=== PATIENT | female | born 1935 | race Caucasian/White ===

== ENCOUNTER 2016-09-06 04:47 | Inpatient (IN) | payer MEDICARE ==
--- NOTE | ~2016-09-06 | HP ---
History And Physical [address] [place]. [address] NAME: RODDY LORA : 37 STATUS : ADM IN [facility]#: [id number] AGE: 80 ADM/REG DATE : 09/06/16 MR#: [id number] REPORT SERV DATE: 09/06/16 DICTATED BY: ISAC AVILA DATE: 09/06/16 REPORT STATUS : Draft TRANSCRIBED BY: MODL DATE: 09/06/16 DATE OF ADMISSION: 09/06/2016 CHIEF COMPLAINT: A 80-year-old female presenting with shortness of breath. HISTORY OF PRESENTING ILLNESS: The patient's history was obtained through an interview with the patient and daughter coupled with review of [facility] and [facility] medical records. For about five days now, the patient has been having increasing shortness of breath and a cough productive of a green and sometimes clear sputum. She describes shortness of breath characterized by dyspnea on exertion. She has had to increase her chronic nasal cannula oxygen because of shortness of breath and because of reported low O2 saturations. Occasionally over the last few days, the patient also had elevated heart rate with palpitations. She describes her chest discomfort "like a car sitting on my chest," 8/10 severity, associated with dyspnea on exertion. She describes abdominal pain and epigastric cramping, distended quality discomfort, 9/10 severity. She has had slight increased confusion. She has had nausea, vomiting, subjective fevers and chills. She may have noticed some black stool?, but this has been a chronic condition. REVIEW OF SYSTEMS: Otherwise, a 14-point review of systems was obtained and was negative. PAST MEDICAL HISTORY: 1. COPD, followed by Dr. Coronado. 2. Congestive heart failure, followed by Dr. Dos Santos. 3. Negative catheterization of the heart in 02/2015. 4. Chronic interstitial lung disease with pulmonary fibrosis. 5. Chronic anemia with central thrombocytosis and a history of a bone marrow biopsy, followed by Dr. Granados with history of multiple blood transfusions as outpatient. 6. Neuropathy. 7. Sinusitis. 8. Colon polyps, seen by Dr. Trevizo. 9. Strokes. 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 11.Gastroesophageal reflux disorder. 12.Depression. PAST SURGICAL HISTORY: 1. Hysterectomy with oophorectomy. 2. Right hip surgery. History And Physical [address] [place]. [address] NAME: RODDY LORA : 37 STATUS : ADM IN [facility]#: [id number] AGE: 80 ADM/REG DATE : 09/06/16 MR#: [id number] REPORT SERV DATE: 09/06/16 DICTATED BY: ISAC AVILA DATE: 09/06/16 REPORT STATUS : Draft TRANSCRIBED BY: MODL DATE: 09/06/16 ALLERGIES: PENICILLIN. SOCIAL HISTORY: Quit smoking in 1986. Rare alcohol use. Lives in [place], [place]. Is a . Lives alone. Daughter lives close by. FAMILY HISTORY: Lung cancer and congestive heart failure. CURRENT MEDICATIONS: Unknown at this time. We requested pharmacy to investigate into a medication list. PHYSICAL EXAMINATION: VITAL SIGNS: Temperature 97.5, pulse 91, blood pressure 128/60, respiratory rate 19, O2 saturation 88% on 4 L nasal cannula and 96% on 6 L nasal cannula. GENERAL: A very ill-appearing female in evidence of some distress even because of shortness of breath and cough. HEENT: Pupils equal, round, and reactive to light. No conjunctival pallor. No scleral icterus. Nares are patent. Oropharynx is clear of obstruction. Moist mucous membranes. NECK: Trachea midline. No thyromegaly. LYMPH: No cervical lymphadenopathy. No supraclavicular lymphadenopathy. RESPIRATORY: The patient has very prominent rhonchi on examination, but also fine dry crackles throughout that suggests pulmonary fibrosis. There seem to be wet rales at the bases of the lungs, some prominent wheeze is also noted. In general, the patient has a very harsh diffuse exam with wheezes, rhonchi, and rales throughout. A very labored respiratory effort, but not in any emergent distress. CARDIOVASCULAR: Regular rate and rhythm. No murmurs, rubs, or gallops. The patient does have noted minimally pitting lower extremity edema that is symmetrical. ABDOMEN: Seems distended by exam. No tympanic resonance on percussion though. Really nontender throughout. No splenomegaly. DERMATOLOGICAL: Warm and dry extremities. No pallor, no cyanosis. PSYCHIATRIC: Normal affect. Good mood. Alert and oriented x3. LABORATORY DATA: White blood cell count 16.8, hemoglobin 7.4, hematocrit 22.7, platelet count of 1252. Sodium 139, potassium 4.6, chloride 97, bicarb 38, BUN 13, creatinine 0.97, glucose 138. Brain natriuretic peptide 288, troponin 0.05. STUDIES: Chest x-ray by my own evaluation shows congestion, cardiomegaly, possible infiltrates. Chronic interstitial lung disease with pulmonary fibrosis. ASSESSMENT AND PLAN: 1. Hypoxic respiratory failure, multifactorial, secondary to chronic obstructive pulmonary disease, possible infiltrates, pulmonary fibrosis, congestive heart failure, and anemia. We will provide supportive care and address each of these. 2. Chronic obstructive pulmonary disease exacerbation. Place on IV Solu-Medrol, duo nebulizers. 3. Systemic inflammatory response syndrome with possible pneumonia? Check procalcitonin. Check blood cultures. Place on empiric IV antibiotics for now to cover pneumonia. History And Physical [address] [address] NAME: RODDY LORA : 37 STATUS : ADM IN [facility]#: [id number] AGE: 80 ADM/REG DATE : 09/06/16 MR#: [id number] REPORT SERV DATE: 09/06/16 DICTATED BY: ISAC AVILA DATE: 09/06/16 REPORT STATUS : Draft TRANSCRIBED BY: ARTIS DATE: 09/06/16 4. Congestive heart failure exacerbation. Place on IV Lasix. Check an echocardiogram. Possible underlying pulmonary hypertension or cor pulmonale? Place on nitro paste. Evaluate for NGOZI inhibitor and beta-mayo. 5. Pulmonary fibrosis. I would like to check high-resolution CT scan of the chest while the patient is here to better define how advanced the patient's pulmonary fibrosis is and how much is related to other pulmonary issues in this presentation. 6. Symptomatic anemia. We will transfuse 1 unit blood. Will be seen as outpatient by Dr. Granados, oncologist, with essential thrombocytosis. KPL/MODL Isac Avila M.D. / [id number] CC: Negro Scruggs M.D. MD Bret Kothari III, M.D., [facility]
--- NOTE | ~2016-09-06 | DS ---
Discharge Summary [facility] [address] [place]. [address] NAME: RODDY LORA : 39 STATUS : DIS IN PAT#: [id number] AGE: 80 ADM/REG DATE : 09/06/16 MR#: [id number] REPORT SERV DATE: 09/10/16 DICTATED BY: ABDIEL BARTH DATE: 09/09/16 REPORT STATUS : Draft TRANSCRIBED BY: MODMartin DATE: 09/09/16 ADMISSION DATE: 09/06/2016 DISCHARGE DATE: 09/09/2016 PRINCIPAL DIAGNOSIS: Symptomatic anemia with occult GI bleeding, guaiac positive stool, and melena. SECONDARY DIAGNOSES: IPF with bronchiectasis and acute on chronic hypoxemic respiratory failure, essential thrombocytosis with chronic leukocytosis, chronic obstructive pulmonary disease, hypercapnia. HISTORY PRESENT ILLNESS: See Dr. Woods's dictation 09/06/2016. HOSPITAL COURSE: Admitted with acute shortness of breath found to have a drop in her hematocrit. She had recently been found to have a guaiac positive stool and had a negative EGD and colonoscopy within the previous several weeks. Her aspirin had to be held. She was transfused, was thought found to be iron deficient, and she felt much better with transfusion. There was a concern about recurrent Pseudomonas. She did in fact have gram- negative rods of unclear identity in her sputum but no pus cells. She was treated empirically, however, with ciprofloxacin given the Pseudomonas history. She was seen by GI who did not wish to do any further inpatient evaluation but she had appointment with Dr. Trevizo on 09/09/2016 so she was discharged in the morning of 09/09/2016 to follow up with him for the possibility of followup capsule endoscopy or other enteroscopic procedure. She will follow up with Dr. Levon oreilly, with Dr. Trevizo on 09/09/2016 as scheduled, Dr. Fredi Granados, her image assembler as previously scheduled as well and with Dr. Treva Coronado, within the next week for further evaluation of her pulmonary disorder. ALFIE/ARTIS Abdiel Barth M.D. / [id number] CC: Easton Soto M.D. Munford Yates III, M.D. Gregory R. Sutton, MD Leonard Hays III, M.D., [facility]
[~2016-09-06 04:47] MED LIST: AMARYL2 PO; ANXIETY MEDICATION PO; CALTRAT600 PO; CELEXA10 PO; CLARIT10 PO; COREG12 PO; COREG3 PO; FESO4UDL PO; NEUR300 PO; NEXIUM40 PO; NTG150 SL; PRIN20 PO; PRIN5 PO; PROVENTSOL INH; SPIRIVA INH; STARLIX60 PO; SYMBICORT 160/41 INH INH; VITAMIN D31000 UNIT PO; ZANTAC150 MG PO
[2016-09-06 05:32] LABS: BUN (BLOOD UREA NITROGEN) 13 MG/DL (6-23); CALCIUM, SERUM 9.9 MG/DL (8.5-10.4); CHEST PAIN PROFILE TAT 0 Hrs 12 Mins; CHLORIDE, SERUM 97 MMOL/L (96-112); CO2 (CARBON DIOXIDE) 38 MMOL/L (24-34); CREATININE 0.97 MG/DL (0.55-1.02); GFR AFRICAN AMERICAN 65 ML/MIN (>=60); GFR NON AFRICAN AMERICAN 56 ML/MIN (>=60); GLUCOSE, SERUM 134 MG/DL (60-99); POTASSIUM, SERUM 4.6 MMOL/L (3.5-5.3); SODIUM, SERUM 139 MMOL/L (135-148); TROPONIN I 0.05 NG/ML (<0.05)
[2016-09-06 06:52] LABS: BASOPHILS 0.5 %; BASOPHILS ABSOLUTE 0.08 10/3/uL (0.0-0.16); EOSINOPHILS ABSOLUTE 0.34 10/3/uL (0.0-0.53); ER CBC TAT 1 Hrs 32 Mins; HEMATOCRIT 23.9 % (36.0-48.0); HEMOGLOBIN 7.4 g/dL (12.0-16.0); IMMATURE GRANULOCYTES 2.1 %; IMMATURE GRANULOCYTES ABSOLUTE 0.36 10/3/uL (0.0-0.11); LYMPHOCYTES 5.5 %; LYMPHOCYTES ABSOLUTE 0.93 10/3/uL (0.67-4.30); MANUAL DIFF NO %; MEAN CORPUSCULAR HEMOGLOB 27.9 pg (26.0-34.0); MEAN CORPUSCULAR VOLUME 90.2 fL (80-100); MEAN PLATELET VOLUME 9.6 fL (9.2-13.0); MONOCYTES 4.3 %; MONOCYTES ABSOLUTE 0.72 10/3/uL (0.21-1.20); NEUTROPHILS 85.6 %; NEUTROPHILS ABSOLUTE 14.34 10/3/uL (2.02-8.40); NUCLEATED RED BLOOD CELLS 0.6 /100WBC (0-0); PLATELET COUNT 1252 10/3/uL (150-400); RBC DISTRIBUTION WIDTH 18.2 % (12.0-16.0); RED CELL COUNT 2.65 10/6/uL (4.0-5.6); WHITE BLOOD CELLS 16.8 10/3/uL (4.5-10.5)
[2016-09-06 06:53] LABS: RBC MORPHOLOGY NORM (NORMAL)
[2016-09-06 06:55] LABS: INTERNATIONAL NORMAL RATI 1.2 UNITS (-); PARTIAL THROMBO TIME 38.7 SEC (22.5-37.2); PROTIME (NOT ORD) 14.7 SEC (12.0-14.5)
[2016-09-06 07:34] LABS: ALLENS TEST Pos; BE (BASE EXCESS) 9.5 MEQ/L (0 +/- 2.5); CARBOXYHEMOGLOBIN 2.1 % (0-3); DEVICE NC; HCO3 (ACTUAL BICARBONATE) 36.8 MEQ/L (23-27); HEMOBLOGIN CONTENT 7.8 G/DL (12-16); INSTRUMENT SERIAL # 8087; METHEMOGLOBIN 0.2 % (0-3); O2 CONTENT 10.3 VOL% (18-24); OPERATOR ID 17589; PCO2 (CO2 TENSION) 72 MMHG (35-45); PO2 (O2 TENSION) 85 MMHG (79-93); SAMPLE Arterial; pH 7.33 (7.37-7.43)
[2016-09-06] MEDS ORDERED: COREG12 PO (08:30)
[2016-09-06] MEDS ORDERED: NEUR300 PO (08:30)
[2016-09-06] MEDS ORDERED: AMARYL1 MG PO (08:30)
[2016-09-06] MEDS ORDERED: ZESTRIL20 MG PO (08:30)
[2016-09-06] MEDS ORDERED: SPIRIVA INH (08:33)
[2016-09-06] MEDS ORDERED: NASONEX NAS (08:33)
[2016-09-06] MEDS ORDERED: CELEXA10 PO (08:33)
[2016-09-06] MEDS ORDERED: XYZAL5 MG PO (08:33)
[2016-09-06] MEDS ORDERED: CALTRAT600 PO (08:34)
[2016-09-06] MEDS ORDERED: VITAMIN D31000 UNIT PO (08:34)
[2016-09-06] MEDS ORDERED: HALF81 PO (08:34)
[2016-09-06] MEDS ORDERED: ALBUTEROL0.63 MG/3 INH (08:34)
[2016-09-06] MEDS ORDERED: PROTONIX PO (08:34)
[2016-09-06] MEDS ORDERED: NORCO1 TA1 PO (08:35)
[2016-09-06 11:37] LABS: HEMATOCRIT 25.7 % (36.0-48.0); MANUAL DIFF YES %; MEAN CORPUS HGB CONC 31.1 g/dL (32.0-36.0); MEAN CORPUSCULAR HEMOGLOB 27.6 pg (26.0-34.0); MEAN CORPUSCULAR VOLUME 88.6 fL (80-100); NUCLEATED RED BLOOD CELLS 0.7 /100WBC (0-0); PLATELET COUNT 1292 10/3/uL (150-400); WHITE BLOOD CELLS 15.8 10/3/uL (4.5-10.5)
[2016-09-06 11:40] LABS: INTERNATIONAL NORMAL RATI 1.1 UNITS (-); PARTIAL THROMBO TIME 38.3 SEC (22.5-37.2); PROTIME (NOT ORD) 14.4 SEC (12.0-14.5)
[2016-09-06 11:56] LABS: A/G RATIO 0.7 (0.7-1.9); ALBUMIN 3.3 G/DL (3.5-5.0); ALKALINE PHOSPHATASE 83 U/L (45-117); BUN (BLOOD UREA NITROGEN) 17 MG/DL (6-23); CALCIUM, SERUM 9.6 MG/DL (8.5-10.4); CHLORIDE, SERUM 89 MMOL/L (96-112); CO2 (CARBON DIOXIDE) 38 MMOL/L (24-34); CREATININE 1.15 MG/DL (0.55-1.02); GFR AFRICAN AMERICAN 53 ML/MIN (>=60); GFR NON AFRICAN AMERICAN 46 ML/MIN (>=60); GLOBULIN 4.8 G/DL (2.5-4.1); GLUCOSE, SERUM 336 MG/DL (60-99); POTASSIUM, SERUM 4.2 MMOL/L (3.5-5.3); SGOT(AST) 14 U/L (5-40); SGPT(ALT) 12 U/L (5-65); SODIUM, SERUM 136 MMOL/L (135-148); TOTAL BILIRUBIN 0.5 MG/DL (0-1.2); TOTAL PROTEIN 8.1 G/DL (6.0-8.5); TROPONIN I 0.03 NG/ML (<0.05)
[2016-09-06 12:04] LABS: BAND NEUTROPHILS 7 %; LYMPHOCYTES 2 %; LYMPHOCYTES ABSOLUTE (CALC) 0.32 10/3/uL (0.67-4.30); MONOCYTES 2 %; MONOCYTES ABSOLUTE (CALC) 0.32 10/3/uL (0.21-1.20); NEUTROPHILS ABSOLUTE (CALC) 15.17 10/3/uL (2.02-8.40); SEGMENTED NEUTROPHIL (0) 89 %; TOTAL NUCLEATED CELLS 100
[2016-09-06 12:05] LABS: ANISOCYTOSIS 1+ (5-10/OIF) (0-5/OIF)
[2016-09-06 12:06] LABS: GIANT PLATELET FEW
[2016-09-06 12:13] LABS: RETICULOCYTE COUNT 2.1 % (0.5-2.9); RETICULOCYTE COUNT ABSOLUTE 58.9 10/3/uL (20.2-119.8)
[2016-09-06 12:40] LABS: PROCALCITONIN <0.05 ng/mL (<0.5)
[2016-09-06 13:30] LABS: % IRON SAT 18 % (20-50); FERRITIN 1447 NG/ML (8-252); IRON BINDING CAPACITY 265 MCG/DL (225-410); IRON, SERUM 48 MCG/DL (35-150)
[2016-09-07 04:21] LABS: ALLENS TEST Pos; BE (BASE EXCESS) 14.1 MEQ/L (0 +/- 2.5); CARBOXYHEMOGLOBIN 0.4 % (0-3); DEVICE NC; HCO3 (ACTUAL BICARBONATE) 40.8 MEQ/L (23-27); HEMOBLOGIN CONTENT 9.6 G/DL (12-16); INSTRUMENT SERIAL # 8083; METHEMOGLOBIN 0.3 % (0-3); O2 CONTENT 13.5 VOL% (18-24); OPERATOR ID 30014; PCO2 (CO2 TENSION) 65 MMHG (35-45); PO2 (O2 TENSION) 145 MMHG (79-93); SAMPLE Arterial; pH 7.41 (7.37-7.43)
[2016-09-07 05:36] LABS: A/G RATIO 0.7 (0.7-1.9); ALKALINE PHOSPHATASE 78 U/L (45-117); CHLORIDE, SERUM 90 MMOL/L (96-112); CO2 (CARBON DIOXIDE) 39 MMOL/L (24-34); GFR AFRICAN AMERICAN 38 ML/MIN (>=60); GFR NON AFRICAN AMERICAN 33 ML/MIN (>=60); GLOBULIN 4.1 G/DL (2.5-4.1); POTASSIUM, SERUM 4.2 MMOL/L (3.5-5.3); SGOT(AST) 14 U/L (5-40); SGPT(ALT) 12 U/L (5-65); SODIUM, SERUM 135 MMOL/L (135-148); TOTAL BILIRUBIN 0.5 MG/DL (0-1.2); TOTAL PROTEIN 7.1 G/DL (6.0-8.5)
[2016-09-07 05:38] LABS: BUN (BLOOD UREA NITROGEN) 31 MG/DL (6-23); GLUCOSE, SERUM 251 MG/DL (60-99)
[2016-09-07 05:46] LABS: BASOPHILS 0.2 %; BASOPHILS ABSOLUTE 0.03 10/3/uL (0.0-0.16); EOSINOPHILS 0 %; HEMATOCRIT 25.3 % (36.0-48.0); HEMOGLOBIN 8.2 g/dL (12.0-16.0); IMMATURE GRANULOCYTES 2.7 %; IMMATURE GRANULOCYTES ABSOLUTE 0.42 10/3/uL (0.0-0.11); LYMPHOCYTES 3.7 %; LYMPHOCYTES ABSOLUTE 0.57 10/3/uL (0.67-4.30); MEAN CORPUS HGB CONC 32.4 g/dL (32.0-36.0); MEAN CORPUSCULAR VOLUME 86.3 fL (80-100); MEAN PLATELET VOLUME 9.9 fL (9.2-13.0); MONOCYTES 6.8 %; MONOCYTES ABSOLUTE 1.05 10/3/uL (0.21-1.20); NEUTROPHILS 86.6 %; NEUTROPHILS ABSOLUTE 13.29 10/3/uL (2.02-8.40); NUCLEATED RED BLOOD CELLS 1.2 /100WBC (0-0); RBC DISTRIBUTION WIDTH 17.6 % (12.0-16.0); RED CELL COUNT 2.93 10/6/uL (4.0-5.6); WHITE BLOOD CELLS 15.4 10/3/uL (4.5-10.5)
[2016-09-07 05:49] LABS: PLATELET COUNT 1248 10/3/uL (150-400)
[2016-09-07 05:50] LABS: MANUAL DIFF NO %
[2016-09-07 06:06] LABS: ANISOCYTOSIS 1+ (5-10/OIF) (0-5/OIF); GIANT PLATELET FEW; RBC MORPHOLOGY ABN (NORMAL)
[2016-09-08 05:01] LABS: HEMATOCRIT 23.9 % (36.0-48.0); HEMOGLOBIN 7.7 g/dL (12.0-16.0); MEAN CORPUS HGB CONC 32.2 g/dL (32.0-36.0); MEAN CORPUSCULAR HEMOGLOB 27.9 pg (26.0-34.0); MEAN CORPUSCULAR VOLUME 86.6 fL (80-100); MEAN PLATELET VOLUME 9.6 fL (9.2-13.0); NUCLEATED RED BLOOD CELLS 0.8 /100WBC (0-0); RBC DISTRIBUTION WIDTH 17.7 % (12.0-16.0); RED CELL COUNT 2.76 10/6/uL (4.0-5.6); WHITE BLOOD CELLS 18.3 10/3/uL (4.5-10.5)
[2016-09-08 05:05] LABS: A/G RATIO 0.8 (0.7-1.9); ALBUMIN 2.8 G/DL (3.5-5.0); ALKALINE PHOSPHATASE 62 U/L (45-117); BUN (BLOOD UREA NITROGEN) 31 MG/DL (6-23); CALCIUM, SERUM 9.1 MG/DL (8.5-10.4); CHLORIDE, SERUM 96 MMOL/L (96-112); CO2 (CARBON DIOXIDE) 39 MMOL/L (24-34); CREATININE 1.06 MG/DL (0.55-1.02); GFR AFRICAN AMERICAN 58 ML/MIN (>=60); GFR NON AFRICAN AMERICAN 50 ML/MIN (>=60); GLOBULIN 3.5 G/DL (2.5-4.1); GLUCOSE, SERUM 76 MG/DL (60-99); SGOT(AST) 16 U/L (5-40); SGPT(ALT) 9 U/L (5-65); SODIUM, SERUM 139 MMOL/L (135-148); TOTAL BILIRUBIN 0.3 MG/DL (0-1.2); TOTAL PROTEIN 6.3 G/DL (6.0-8.5)
[2016-09-08 05:06] LABS: PLATELET COUNT 1214 10/3/uL (150-400)
[2016-09-08 05:07] LABS: MANUAL DIFF YES %
[2016-09-08 05:25] LABS: ANISOCYTOSIS 1+ (5-10/OIF) (0-5/OIF); BAND NEUTROPHILS 2 %; LYMPHOCYTES 3 %; LYMPHOCYTES ABSOLUTE (CALC) 0.55 10/3/uL (0.67-4.30); MONOCYTES 6 %; NEUTROPHILS ABSOLUTE (CALC) 16.65 10/3/uL (2.02-8.40); SEGMENTED NEUTROPHIL (0) 89 %; TOTAL NUCLEATED CELLS 100
[2016-09-08 05:26] LABS: GIANT PLATELET FEW
[2016-09-08 13:45] LABS: HEMOGLOBIN 9.9 g/dL (12.0-16.0)
[2016-09-09 05:47] LABS: CALCIUM, SERUM 9.3 MG/DL (8.5-10.4); CHLORIDE, SERUM 97 MMOL/L (96-112); CREATININE 0.89 MG/DL (0.55-1.02); GFR AFRICAN AMERICAN 72 ML/MIN (>=60); GFR NON AFRICAN AMERICAN 62 ML/MIN (>=60); POTASSIUM, SERUM 4.2 MMOL/L (3.5-5.3); SODIUM, SERUM 137 MMOL/L (135-148)
[2016-09-09 05:49] LABS: CO2 (CARBON DIOXIDE) 41 MMOL/L (24-34)
[2016-09-09 05:50] LABS: BUN (BLOOD UREA NITROGEN) 22 MG/DL (6-23); GLUCOSE, SERUM 106 MG/DL (60-99)
[2016-09-09 05:52] LABS: HEMATOCRIT 28.5 % (36.0-48.0); HEMOGLOBIN 9.2 g/dL (12.0-16.0); MEAN CORPUS HGB CONC 32.3 g/dL (32.0-36.0); MEAN CORPUSCULAR VOLUME 86.9 fL (80-100); MEAN PLATELET VOLUME 9.5 fL (9.2-13.0); NUCLEATED RED BLOOD CELLS 0.6 /100WBC (0-0); RBC DISTRIBUTION WIDTH 16.8 % (12.0-16.0); RED CELL COUNT 3.28 10/6/uL (4.0-5.6); WHITE BLOOD CELLS 17.9 10/3/uL (4.5-10.5)
[2016-09-09 05:54] LABS: MANUAL DIFF YES %; PLATELET COUNT 1111 10/3/uL (150-400)
[2016-09-09 06:33] LABS: BAND NEUTROPHILS 4 %; LYMPHOCYTES 3 %; LYMPHOCYTES ABSOLUTE (CALC) 0.54 10/3/uL (0.67-4.30); MONOCYTES 8 %; MONOCYTES ABSOLUTE (CALC) 1.43 10/3/uL (0.21-1.20); NEUTROPHILS ABSOLUTE (CALC) 15.93 10/3/uL (2.02-8.40); SEGMENTED NEUTROPHIL (0) 85 %; TOTAL NUCLEATED CELLS 100
[2016-09-09 06:34] LABS: ANISOCYTOSIS 1+ (5-10/OIF) (0-5/OIF)
[2016-09-09] MEDS ORDERED: CIP5 PO (10:36)
[2016-09-09] MEDS ORDERED: STERAPDS12 (10:37)
[2016-09-09] MEDS ORDERED: MUCINEX PO (10:37)
[2016-09-09] MEDS ORDERED: HUMI PO (10:38)
[2016-09-09] MEDS ORDERED: CLARIT10 PO (10:39)
[2016-09-09] MEDS ORDERED: T PO (10:41)
== END 2016-09-09 15:39 | disposition home health service (06) | DRG 811 ==
LOC: ER 04:47 → 2SO 05:54
PROVIDERS: Hospitalist; Internal Medicine; Nurse Practitioner
PROC: 30233N1 Transfusion of Nonautologous Red Blood Cells into Peripheral Vein, Percutaneous Approach (ICD-10-PCS; principal; 2016-09-06)
DX: D64.9 Anemia, unspecified (principal); J96.21 Acute and chronic respiratory failure with hypoxia; N17.9 Acute kidney failure, unspecified; J84.9 Interstitial pulmonary disease, unspecified; J96.22 Acute and chronic respiratory failure with hypercapnia; K92.2 Gastrointestinal hemorrhage, unspecified; J44.1 Chronic obstructive pulmonary disease with (acute) exacerbation; I50.32 Chronic diastolic (congestive) heart failure; J84.112 Idiopathic pulmonary fibrosis; Z86.73 Personal history of transient ischemic attack (TIA), and cerebral infarction without residual deficits; K21.9 Gastro-esophageal reflux disease without esophagitis; F32.9 Major depressive disorder, single episode, unspecified; Z87.891 Personal history of nicotine dependence; R73.9 Hyperglycemia, unspecified; T38.0X5A Adverse effect of glucocorticoids and synthetic analogues, initial encounter; J47.9 Bronchiectasis, uncomplicated; D47.3 Essential (hemorrhagic) thrombocythemia
CPT/HCPCS: 36415; 36600; 71010; 71250; 80048; 80053; 82272; 82728; 82805; 82962; 83540; 83550; 83605; 83735; 83880; 84145; 84443; 84484; 85014; 85018; 85025; 85045; 85610; 85730; 86850; 86900; 86901; 86920; 87070; 87077; 87186; 87205; 87449; 93005; 93306; 94640; 99285; A9270-GY; C9113; J0456; J1940; J2430; J2920; J2930; P9016

== ENCOUNTER 2016-10-10 16:01 | Observation (INO) | payer OTHER ==
--- NOTE | ~2016-10-10 | CN ---
Consultation Report [facility] [address] [facility] [place]. [address] NAME: RODDY LORA : 39 STATUS : DIS Kenny PAT#: [id number] AGE: 80 ADM/REG DATE : 10/10/16 MR#: [id number] REPORT SERV DATE: 10/11/16 DICTATED BY: DAVID TRINIDAD DATE: 10/11/16 REPORT STATUS : Draft TRANSCRIBED BY: MODMartin DATE: 10/11/16 CONSULTATION DATE OF CONSULTATION: 10/11/2016 AUTOCAD OPERATOR: Dr. Trevizo. REASON FOR CONSULTATION: Abdominal pain, nausea, and vomiting. HISTORY OF PRESENT ILLNESS: Ms. Soares is a 80-year-old lady, who presents to the hospital with diffuse abdominal pain, some nausea and vomiting. No hematemesis. She had complained of some dark stools, but Hemoccult was negative. She has had this problem chronically, and in the past has had a workup by Dr. Trevizo. As per records, last EGD and colonoscopy were actually in 03/2015. Colonoscopy done for iron deficiency anemia, revealing diverticulosis and some polyps in the colon that were removed. EGD done on the same day showed a tortuous esophagus and a Schatzki's ring with some gastropathy. At this point, she has bad lungs with basically pulmonary fibrosis. Still has some abdominal pain. Looks like nausea and vomiting has resolved. On admission, she has had a CT scan of the chest, abdomen, and pelvis done without contrast. The chest CT shows chronic extensive reticulonodular infiltrates throughout both lung cornejo consistent with multifocal areas of chronic fibrosis. Stable large nodules in the lateral left upper lobe measuring 7 mm. There was some fibrosis and bronchiectasis and left hilar enlarged lymph node. There is hyperinflation of the lungs. The abdomen and pelvis CT show no acute abdominal pelvic pathology, no bowel obstruction, some cyst in the lower pole of the right kidney and left kidney, diverticulosis without diverticulitis, status post hysterectomy and a cyst in the posterolateral bladder wall and a diverticulum in the left adnexal cyst. It appears that the patient was suppose to have an outpatient capsule exam, which we will keep. I do not see any need for a capsule exam to be done in the hospital at this point. Going through the records, the only thing that has not been done and she has had this chronic abdominal pain is a mesenteric Doppler and I will schedule one. The patient can be discharged from a GI standpoint, and even the mesenteric Doppler actually can be done as an outpatient. Pulmonary was consulted for hemoptysis and the impression was hemoptysis, which has resolved in a patient with lung disease and I do not believe any further things are going to be planned in this hospitalization. PAST MEDICAL HISTORY: 1. Chronic abdominal pain, workup in progress by Dr. Trevizo. 2. Pulmonary fibrosis and other pulmonary problems as mentioned. 3. History of COPD. 4. Chronic anemia with thrombocytosis, for which she has even had a bone marrow biopsy, has had some blood transfusions in the past. 5. GERD. HOME MEDICINES: Include Tylenol p.r.n., albuterol, aspirin, carvedilol, Cipro eye drops, Consultation Report [address] [address] NAME: RODDY LORA : 39 STATUS : DIS Kenny PAT#: [id number] AGE: 80 ADM/REG DATE : 10/10/16 MR#: [id number] REPORT SERV DATE: 10/11/16 DICTATED BY: DAVID TRINIDAD DATE: 10/11/16 REPORT STATUS : Draft TRANSCRIBED BY: ARTIS DATE: 10/11/16 Celexa, Neurontin, glimepiride, Mucinex, hydrocodone, Nasonex, nitroglycerin p.r.n., Protonix 40 b.i.d., Spiriva. She is on tobramycin inhaler three times a week. REVIEW OF SYSTEMS: Extensive review of systems is as above. PHYSICAL EXAMINATION: GENERAL: She is a fully alert, oriented lady, somewhat short of breath. LUNGS: Revealed decreased air entry with bilateral rales. CVS: Normal. ABDOMEN: Benign. CT scans are as mentioned. LABORATORIES: Reveals a normal chemistry panel on admission, except for a total bilirubin of 1.7. BMP done today shows a BUN of 11 with a creatinine of 1.07. C02 is 37. White count 9.9, hemoglobin today is 9.6, it was 10.3 on admission, platelets are 941. IMPRESSION: Nausea, vomiting, sort of resolved, however abdominal pain continues which is chronic. I do not plan to do anything from a GI standpoint while she is in the hospital except for doing a mesenteric Doppler and a capsule exam can be done as an outpatient. RECOMMENDATIONS: Case discussed with the patient and family and with Dr. Tejada, we will order a Doppler and if that is okay, can be discharged from a GI standpoint. JEFFRY/ARTIS Be Trinidad M.D. / [id number] CC: Easton Santoro III, M.D.
--- NOTE | ~2016-10-10 | HP ---
History And Physical [address] [place]. [address] NAME: RODDY LORA : 37 STATUS : ADM Kenny PAT#: [id number] AGE: 80 ADM/REG DATE : 10/10/16 MR#: [id number] REPORT SERV DATE: 10/10/16 DICTATED BY: TOBY CORTEZ DATE: 10/10/16 REPORT STATUS : Draft TRANSCRIBED BY: MODL DATE: 10/10/16 DATE OF ADMISSION: 10/10/2016 HISTORY OF PRESENT ILLNESS: The patient is a 80-year-old female, who reported that she was not doing well on the weekend. She was having abdominal pain diffuse in the abdomen as well as she went to have a blood transfusion yesterday and she developed nausea and vomiting. She was vomiting all night as well as she was having black bowel movements, which were subsequently checked in the emergency room and they were negative for blood. She is also complaining of nausea and abdominal discomfort diffuse in the belly. She is complaining of hemoptysis. She coughed up blood in front of me and it was coming from upper respiratory airway. She denies any fever. She said she has a chest pain in the mid chest, which is kind of sensation that something is sitting on it or she said that she has it all the time on and off. She has white sputum production with some mixed with the blood. She has chronic shortness of breath. She is on 4 L of oxygen at home. She has chronic respiratory failure. REVIEW OF SYSTEMS: Her all 14-point review of systems obtained and negative except what is stated in the history of present illness. PAST MEDICAL HISTORY: Known for COPD, followed by Dr. Coronado; chronic interstitial lung disease with pulmonary fibrosis; chronic hypoxic respiratory failure, on 4 L of oxygen by nasal cannula; chronic anemia with essential thrombocytosis; history of bone marrow biopsy, followed by Dr. Granados, with multiple blood transfusions as outpatient; history of neuropathy; sinusitis; history of colonic polyps per Dr. Trevizo; history of bilateral varicosities; history of stroke; gastroesophageal reflux disease; depression. She also was hospitalized last time and she had guaiac-positive stool last time and negative EGD and colonoscopy. She was supposed to have pill camera study. 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 PAST SURGICAL HISTORY: Includes hysterectomy, oophorectomy, right hip surgery, she had negative coronary catheterization in [address] Dos Santos, history of congestive heart failure with [id number] aortic stenosis. ALLERGIES: SHE IS ALLERGIC TO PENICILLIN AND LATEX AND MYCINS. HOME MEDICATIONS: Include Tylenol 650 p.o. t.i.d. as needed, albuterol one nebulization four times a day, aspirin 81 mg daily, carvedilol 12.5 p.o. b.i.d., ciprofloxacin eye drops at bedtime, Celexa 10 mg a day, Neurontin 300 t.i.d., glimepiride 1 mg p.o. every morning, Mucinex 600 mg twice a day p.r.n.; hydrocodone 5/325, 0.5 to 1 tablet 4 times daily; Xyzal 5 mg before supper; Nasonex two sprays twice a day p.r.n.; nitroglycerin 0.4 p.o. p.r.n.; Protonix 40 mg b.i.d.; Pred Forte one drop every morning; Spiriva one capsule by inhalation q.24 hours; tobramycin 300 mg inhaled Friday, Friday, and Friday; Restora over-the- counter one capsule daily. SOCIAL HISTORY: Quit smoking in 1986. Rare alcohol use. Lives in [place], [place]. She is History And Physical [address] [address] NAME: RODDY LORA : 39 STATUS : ADM Kenny PAT#: [id number] AGE: 80 ADM/REG DATE : 10/10/16 MR#: [id number] REPORT SERV DATE: 10/10/16 DICTATED BY: TOBY CORTEZ DATE: 10/10/16 REPORT STATUS : Draft TRANSCRIBED BY: ARTIS DATE: 10/10/16 a , lives alone. She has daughter who lives nearby. FAMILY HISTORY: Positive for lung cancer and congestive heart failure. PHYSICAL EXAMINATION: GENERAL: Thin female, not in acute distress, resting quietly. VITAL SIGNS: Blood pressure 118/66, temperature 98.2, heart rate 75, respirations 16, and oxygen saturation 96% on room air. HEENT: Head is atraumatic, normocephalic. Conjunctivae are clear. Pupils are equal and reactive to light and accommodation. Extraocular muscles are intact. NECK: Supple. Trachea is midline. No supraclavicular or cervical lymphadenopathy. LUNGS: Coarse breath sounds bilaterally with normal respiratory effort. CARDIOVASCULAR: Regular rate and rhythm. Point of maximal impulse not displaced. ABDOMEN: Soft. Positive bowel sounds, slightly diminished. Mild pain to palpation in the mid abdominal area. There is no guarding and no rebound. Absolutely benign abdominal examination. No organomegaly. EXTREMITIES: No clubbing, cyanosis, or edema. There are some varicosities in lower extremities. NEUROLOGIC: She is awake, alert, and oriented to time, place, and person. Muscle strength is 5/5 bilaterally in upper and lower extremities. SKIN: Normal color, slightly decreased turgor. PSYCHIATRIC: Anxious mood and affect. LABORATORY RESULTS: Sodium 140, potassium 4.3, chloride 98, carbon dioxide 39, BUN 12, creatinine 1.02, blood sugar 115, ALT 14, AST 21, total bilirubin 1.7. White count 13.2, hemoglobin 10.3, hematocrit 33.9, platelet count 1010. There are 7% bands. INR 1.2. PT 14.9. I would like to mention that she had leukocytosis all the time she was admitted since 08/2016 and 13.2 is the lowest one. IMAGING: EKG showed normal sinus rhythm with a rate of 71 with some premature atrial complexes. ASSESSMENT AND PLAN: This is a 80-year-old female with a past medical history of oxygen- dependent chronic obstructive pulmonary disease, pulmonary fibrosis, history of heme- positive stool with negative upper and lower endoscopies recently, history of mild-to- moderate aortic stenosis, and other chronic medical problems mentioned above, presented with, 1. Abdominal pain, nausea, and vomiting started even before she had blood transfusion. 2. Black stool with being heme negative. 3. Cough with chest congestion. 4. Chronic respiratory failure, oxygen dependent. We will admit the patient for observation. For her abdominal pain, we will give her symptomatic treatment with gentle hydration taking into consideration she has [id number] aortic stenosis. We will give her pain control with reasonable amount of pain medications as well as we will do a CT of the abdomen and pelvis, and we will give her antinausea medications for her nausea. 5. We will check stool Hemoccult x3 and will consult Gastroenterology since she had heme- History And Physical [address] [place]. [address] NAME: RODDY LORA : 39 STATUS : ADM Kenny PAT#: [id number] AGE: 80 ADM/REG DATE : 10/10/16 MR#: [id number] REPORT SERV DATE: 10/10/16 DICTATED BY: TOBY CORTEZ DATE: 10/10/16 REPORT STATUS : Draft TRANSCRIBED BY: MODL DATE: 10/10/16 positive stool last time and they have to see her also for her abdominal pain. I will order CT scan of the abdomen and pelvis. 6. Hemoptysis. The patient has pulmonary fibrosis and we will do a CT on the chest on this patient to evaluate her hemoptysis. I will do sputum cultures as well as I will consult ammunition components inspector. 7. Chest pain. She had chest pain all the time on and off according to the patient. We will check serial troponins on this patient. 8. We will give her Ativan for anxiety. 9. Leukocytosis. Since 07/2016, the patient has leukocytosis and the lowest number she has today is 13.2. I think this leukocytosis most likely is related to her essential thrombocytosis. We will check her procalcitonin level. She is afebrile. We will check her blood cultures x2. 10.For diabetes mellitus, we will put her on insulin sliding scale. I will follow up on this patient tomorrow. MG/MODL Toby Cortez M.D. / [id number] CC: MD Treva Kothari M.D. Ismael Trevizo III, M.D. Bret Dos Santos III, M.D., [facility]
--- NOTE | ~2016-10-10 | CN ---
Consultation Report [facility] [address] [place]. [address] NAME: FANY LORA : 37 STATUS : ADM Kenny PAT#: [id number] AGE: 80 ADM/REG DATE : 10/10/16 MR#: [id number] REPORT SERV DATE: 10/11/16 DICTATED BY: KEITH CHENG DATE: 10/11/16 REPORT STATUS : Draft TRANSCRIBED BY: MODL DATE: 10/11/16 CONSULT NOTE DATE OF CONSULTATION: 10/11/2016 CHIEF COMPLAINT: Hemoptysis in a patient who initially presented with abdominal complaints. HISTORY OF PRESENT ILLNESS: Mrs. Fany Lora is a 80-year-old white female with a past medical history significant for bronchiectasis with pseudomonal in fashion, COPD, and chronic hypoxemic respiratory failure, who presented to [facility]'s Emergency Room with complaints of abdominal pain. It should be noted that the patient was hospitalized as recently as September of this year when she was treated for anemia secondary to occult GI bleeding. She has had a difficult course in the short interval. Mrs. Lora is followed by Dr. Treva Coronado, for her outpatient pulmonary needs. She is chronically on supplemental oxygen at 4 L. She is on a pulmonary regimen of albuterol and Spiriva, of which she is compliant. She also takes inhaled tobramycin for her pseudomonal infection. The patient quit smoking in 1986, prior to this time, she states she smoked maybe half a pack a day for a period of twenty years. She describes her exercise tolerance as being quite limited, becoming short of breath just ambulating around her home while wearing her supplemental oxygen. The patient largely denies symptomatology related to obstructive sleep apnea. Again, Mrs. Lora was hospitalized approximately a month ago when she was seen for issues related to GI bleed. She has had at least one outpatient transfusion since this time. More recently, she began to experience diffuse abdominal pain with concomitant loose diarrhea. She did eventually presented to [facility]'s Emergency Room for these concerns. Her initial blood pressure was noted to be 118/66. She was afebrile with good oxygenation of 4 L. Initial white blood cell count was noted to be 13,200. She did have an episode of hemoptysis, which produce maybe a teaspoon of bright red blood. This has improved over the last 24 hours with only streaks of blood in her sputum. For the aforementioned reasons, she has been referred to the Pulmonary Service for further assessment. Mrs. Lora's main pulmonary complaint today is shortness of breath, this worse on exertion and relieved by rest. Again, she has had some hemoptysis; however, this is improving. Her initial hemoptysis produced approximately a teaspoon of bright red blood. She states that, she has had this occur in the past, and has resolved over the course of two to three days. She is now producing some thick yellow sputum with streaks of blood within it, although not very much. She does have known bronchiectasis and COPD. The patient currently denies any murmurs, angina, or palpitations. She states that, she is scheduled to establish care with Dr. Dos Santos for her cardiac needs. The patient has had issues with dysphagia, reflux disease as well as previous esophageal Consultation Report [address] [address] NAME: FANY LORA : 37 STATUS : ADM Kenny PAT#: [id number] AGE: 80 ADM/REG DATE : 10/10/16 MR#: [id number] REPORT SERV DATE: 10/11/16 DICTATED BY: KEITH CHENG DATE: 10/11/16 REPORT STATUS : Draft TRANSCRIBED BY: ARTIS DATE: 10/11/16 dilatation. In regard to constitutional symptoms, she currently denies any fever, chills, nausea, vomiting, chest pain, or edema. PAST MEDICAL HISTORY: 1. COPD. 2. Chronic hypoxemic respiratory failure. 3. Chronic anemia. 4. Gastroesophageal reflux disease. 5. Depression. 6. Bronchiectasis. PAST SURGICAL HISTORY: 1. Hysterectomy. 2. Right hip surgery. FAMILY HISTORY: The patient states that eight of her ten siblings had lung disease. History of COPD and cancer. SOCIAL HISTORY: The patient is . She lives alone. She has three children, her daughter is currently at bedside. She previously worked at [employer], but denies any obvious exposures to dust, silica, or asbestos. TOBACCO/ALCOHOL: As previously mentioned, the patient quit smoking in 1986. Prior to this time, she smoked maybe half a pack a day for a period of twenty years. She denies any recent alcohol or illicit drug use. MEDICATIONS: 1. Albuterol. 2. Aspirin 81 mg. 3. Carvedilol 12.5 mg. 4. Citalopram 10 mg. 5. Gabapentin 300 mg. 6. Glimepiride 1 mg. 7. Guaifenesin 600 mg. 8. [place] 5/325. 9. Levocetirizine 5 mg. 10.Pantoprazole 40. 11.Spiriva. 12.Tobramycin inhaled. ALLERGIES: THE PATIENT HAS KNOWN ALLERGY TO PENICILLIN AND LATEX. REVIEW OF SYSTEMS: A complete review of systems was performed with pertinent positives and negatives contained within the body of the HPI. Consultation Report [facility] [id number] [place]. [address] NAME: FANY LORA : 37 STATUS : ADM Kenny PAT#: [id number] AGE: 80 ADM/REG DATE : 10/10/16 MR#: [id number] REPORT SERV DATE: 10/11/16 DICTATED BY: KEITH CHENG DATE: 10/11/16 REPORT STATUS : Draft TRANSCRIBED BY: ARTIS DATE: 10/11/16 PHYSICAL EXAMINATION: VITAL SIGNS: Blood pressure is 161/72, heart rate is 67, T-max is 98.1, respiratory rate is 22, SpO2 is 98% on 4L. GENERAL: Mrs. Fany Lora is a pleasant 80-year-old white female. SKIN: Skin with appropriate texture, turgor. HEENT: Head, skull is normocephalic, atraumatic. Eyes, sclerae anicteric. Ears, hearing somewhat diminished. Nose, bilateral nasal patency, although some congestion noted. Throat, the patient is edentulous in the uppers. NECK: Neck is supple. Trachea midline. THORAX/LUNGS: Inspiratory crackles appreciated through entire lung cornejo with a few scattered rhonchi. CARDIOVASCULAR: Regular rate and rhythm. ABDOMEN: Soft, nondistended, nontender. PERIPHERAL VASCULAR: No edema. MUSCULOSKELETAL: Full AROM and PROM in all joints. NEUROLOGIC: Cranial nerves 2-12 grossly intact. ACCESSORY DATA: Reveals a white blood cell count of 9900, platelets are 941. Serum CO2 is 37. CT of the chest reveals a stable pattern of multifocal small subcentimeter reticulonodular infiltrates throughout both lungs. There is some stable bandlike fibrosis in the right middle lobe. There is area of stable chronic bronchiectasis in the right upper lobe. IMPRESSION: 1. Nausea, vomiting with concomitant abdominal pain. 2. Hemoptysis - resolving. 3. Bronchiectasis with Pseudomonas colonization. 4. Chronic obstructive pulmonary disease. 5. Chronic hypoxemic respiratory failure. 6. Chronic - stable reticulonodular infiltrates. 7. Gastroesophageal reflux disease. PLAN: 1. In regard to the patient's hemoptysis, this is seemingly resolving at this time. We will continue to surveil her moving forward. There are no immediate plans to pursue bronchoscopy at this time. Her likely etiology is secondary to her bronchiectatic airways. 2. In regard to the patient's bronchiectasis, a sputum sample has been collected, of which we will follow further recommendations. She will continue on her inhaled tobramycin. The primary team has initiated her on Levaquin, we will change that to its oral equivalency. 3. In regard to the patient's COPD, we will place her on a full armamentarium of nebulized medications in an attempt to maximize her pulmonary toilet. 4. In regard to the patient's chronic hypoxemic respiratory failure, she is at baseline. Consultation Report [address] [address] NAME: FANY LORA : 37 STATUS : ADM Kenny PAT#: [id number] AGE: 80 ADM/REG DATE : 10/10/16 MR#: [id number] REPORT SERV DATE: 10/11/16 DICTATED BY: KEITH CHENG DATE: 10/11/16 REPORT STATUS : Draft TRANSCRIBED BY: MODL DATE: 10/11/16 5. In regard to the patient's stable reticulonodular infiltrates, there is no clear indication to pursue biopsy at this time. We would certainly defer following these nodules to her established sterile proc tech. The aforementioned impression and plan has been discussed with Dr. Lisa, who will follow further recommendations. We thank you for this consult and forward to participating in the care of Fany Lora. RUDOLPH/MODL Keith Cheng PA-C / [id number] CC: Tami Tejada M.D.
--- NOTE | ~2016-10-10 | DS ---
Discharge Summary [facility] [id number] [place]. [address] NAME: RODDY LORA : 37 STATUS : ADM Kenny PAT#: [id number] AGE: 80 ADM/REG DATE : 10/10/16 MR#: [id number] REPORT SERV DATE: 10/11/16 DICTATED BY: TOBY CORTEZ DATE: 10/11/16 REPORT STATUS : Draft TRANSCRIBED BY: MODL DATE: 10/11/16 ADMISSION DATE: 10/10/2016 DISCHARGE DATE: 10/11/2016 DIAGNOSES ON ADMISSION: 1. Abdominal pain, nausea, and vomiting, started on the weekend. 2. Black stool being heme negative. 3. Cough with chest congestion. 4. Hemoptysis. 5. Chronic respiratory failure, oxygen dependent. 6. Chest discomfort secondary to cough. 7. Leukocytosis, chronic in nature. DIAGNOSES ON DISCHARGE: 1. Nausea, vomiting, and abdominal pain, resolved. History of chronic abdominal pain with a negative workup. Negative CT scan of the abdomen. 2. Hemoptysis, chronic in nature secondary to bronchiectasis, currently resolved. No evidence of hemoptysis. 3. Stable chronic reticulonodular infiltrates. 4. Bronchiectasis with a history of Pseudomonas. 5. Chronic obstructive pulmonary disease. 6. Chronic hypoxemic respiratory failure, oxygen dependent at the baseline and no evidence of worsening of respiratory failure. 7. Leukocytosis, present on admission, resolved once antibiotic was started. 8. Negative mesenteric duplex ultrasound. 9. No evidence of gastrointestinal bleeding, stable hemoglobin and hematocrit. 10.History of recent negative upper and lower endoscopy. 11.Small kidney cyst found on the CT of the abdomen and pelvis. Follow up with urologist as needed. 12.Mild diabetes. Blood sugar currently under control. CONSULTANTS ON THE CASE: Community Marketing Coordinator, nurse practitioner, [employer]. Also, animal ecologist Dr. Zeeshan Trinidad. 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 Stable mild superior left hilar enlarged lymph node and borderline enlarged periaortic node. Hyperinflation of the lungs consistent with a past history of COPD. No superimposed acute infiltrate identified. CT of the abdomen and pelvis without contrast showed no acute abdominal or pelvic pathology. Probable small hyperdense cyst in the lower pole of the right kidney and simple cyst left kidney, diverticulosis in the descending and sigmoid colon. No acute diverticulitis. Stable post hysterectomy. Thin wall 3.6 cm cyst adjacent to the left posterior lateral bladder base either seen walled bladder diverticulum or a left Discharge Summary [address] [address] NAME: RODDY LORA : 37 STATUS : ADM Kenny PAT#: [id number] AGE: 80 ADM/REG DATE : 10/10/16 MR#: [id number] REPORT SERV DATE: 10/11/16 DICTATED BY: TOBY CORTEZ DATE: 10/11/16 REPORT STATUS : Draft TRANSCRIBED BY: ARTIS DATE: 10/11/16 adnexal cyst. Mesenteric duplex ultrasound did not show any evidence of mesenteric stenosis. HISTORY OF PRESENT ILLNESS: Briefly, this is very pleasant, 80-year-old female with a past medical history of essential thrombocytosis, was admitted by me yesterday because of episode of nausea and vomiting, started during blood transfusion, although the patient reported that she had nausea and vomiting the night before blood transfusion as well as she had abdominal pain and discomfort on the weekend. She also was coughing up blood with small amount and she said that she had hemoptysis before. She had whitish sputum production. She is oxygen dependent with chronic respiratory failure and on 4 L and also she has history of Pseudomonas in her sputum. The patient also had dark stool but it was heme negative during this admission, it was checked in the emergency room. The patient has history of guaiac- positive stool in the past, but she had upper and lower endoscopies done recently, which were negative, and she also needed to have a pill camera study. For the details, see history of present illness dictated by me on 10/10/2016. HOSPITAL COURSE: Briefly, the patient was admitted to the hospital. She was started on intravenous Levaquin as well as she was started on clear liquid diet. Her diarrhea has resolved when she was on a clear liquid diet and her hemoptysis also has resolved. She was still complaining of mild abdominal pain. Dr. Zeeshan Trinidad, animal ecologist, saw the patient in consult, and he discussed with the patient regarding her abdominal pain. Her abdominal pain is chronic and she is now better, she is able to eat and drink, and she tolerated her diet. Dr. Trinidad also reviewed the CT of the abdomen, there was no any pathology. He recommended to have mesenteric duplex ultrasound. Mesenteric duplex ultrasound was done and it was negative. Dr. Trinidad recommended to advance the patient's diet since she does not have any nausea or vomiting. He recommended the patient to be discharged, and the patient herself was also feeling better and she was requesting to be discharged. Regarding the patient's hemoptysis, it has resolved today, and the patient was seen in consultation with Martir Blakely, nurse practitioner of Dr. Lisa of data input clerk, Martir Blakely recommended to continue Levaquin for five more days, as well as he recommended the patient to continue her inhalers. It was determined by data input clerk that the patient is at her baseline for her chronic hypoxemic respiratory failure, and she has chronic reticular nodular infiltrates, which are in the same state as they were before, so Martir Blakely was also agreeable with the patient to be discharged today, and he recommended to continue Levaquin for five more days and also to follow up with Dr. Coronado as outpatient in one or two weeks. Her anemia has been stable. Her leukocytosis resolved with antibiotics. It was in the normal range. She has essential thrombocytosis, for which she follows up with her Oncology/Hematology Dr. Granados. She had episode of hypoglycemia while she was on clear liquids. It has resolved and blood sugar was 86 after she started to eat. The patient was recommended also to hold Discharge Summary [address] [address] NAME: RODDY LORA : 37 STATUS : ADM Kenny PAT#: [id number] AGE: 80 ADM/REG DATE : 10/10/16 MR#: [id number] REPORT SERV DATE: 10/11/16 DICTATED BY: TOBY CORTEZ DATE: 10/11/16 REPORT STATUS : Draft TRANSCRIBED BY: ARTIS DATE: 10/11/16 her glimepiride initially. Once she is eating her normal diet, she can restart her glimepiride. DISCHARGE MEDICATIONS: Carvedilol 12.5 mg p.o. b.i.d.; ciprofloxacin eye drops at bedtime; Celexa 10 mg a day; Neurontin 300 mg a day; Xyzal 5 mg before supper; Protonix 40 mg twice a day; Pred Forte one drop every morning; Nasonex two sprays daily; Spiriva one capsule by inhalation q.24 hours; albuterol one nebulization four times a day; tobramycin 300 mg on Friday, Friday, and Friday; Tylenol 650 three times a day p.r.n., the patient recommended hold for two days her baby aspirin, then restart it if there is no hemoptysis; nitroglycerin 0.4 mg p.o. as needed for pain; hold glimepiride until eats normal diet; Mucinex 600 mg p.o. daily as needed; hydrocodone with acetaminophen half to one p.o. q.6 hours p.r.n. for pain, total of 15 pills without any refills; Restore one capsule daily; prescription was given for Levaquin 750 mg p.o. daily for five days; and Florastor one p.o. b.i.d. The patient was doing very well. She did not have any chest pain. She had negative troponins. The patient was recommended to follow up with Dr. Coronado, data input clerk, in a week or two. Follow up with Dr. Trevizo in Gastroenterology for outpatient camera study. Follow up with Dr. Granados as needed. The patient was recommended to find a primary care physician also for followup and to reduce frequency of hospitalizations. The patient's CT of the abdomen and pelvis showed no acute abdominal or pelvic pathology. It showed probable small hyperdense cyst in the lower pole of the right kidney and simple cyst on the left kidney as well as thin wall 3.6 cm cyst adjacent to the left posterolateral bladder base, either a thin-walled bladder diverticulum or a left adnexal cyst. These findings were discussed with the patient and her daughter. It was recommended the patient to follow up with urologist for followup with these hyperdense cyst and bladder cyst or versus diverticulum. Urology to follow up and the patient will feel better to make sure the cysts are not growing, and they are not complex and the patient's daughter and the patient understood. I spent 45 minutes on discharge. The patient was discharged in stable condition. DICTATED BY: Easton Santoro/ARTIS Toby Cortez M.D. / [id number] CC: Easton Santoro III, M.D.
[~2016-10-10 16:01] MED LIST changes: +ALBUTEROL0.63 MG/3 INH; +AMARYL1 MG PO; +CIP5 PO; +HALF81 PO; +HUMI PO; +MUCINEX PO; +NASONEX NAS; +NORCO1 TA1 PO; +PROTONIX PO; +STERAPDS12; +T PO; +XYZAL5 MG PO; +ZESTRIL20 MG PO
[2016-10-10 16:29] LABS: BASOPHILS ABSOLUTE 0.13 10/3/uL (0.0-0.16); EOSINOPHILS 1.8 %; EOSINOPHILS ABSOLUTE 0.24 10/3/uL (0.0-0.53); ER CBC TAT 0 Hrs 08 Mins; HEMOGLOBIN 10.3 g/dL (12.0-16.0); IMMATURE GRANULOCYTES 2.6 %; IMMATURE GRANULOCYTES ABSOLUTE 0.34 10/3/uL (0.0-0.11); LYMPHOCYTES 7.1 %; LYMPHOCYTES ABSOLUTE 0.94 10/3/uL (0.67-4.30); MEAN CORPUSCULAR HEMOGLOB 26.6 pg (26.0-34.0); MEAN CORPUSCULAR VOLUME 87.6 fL (80-100); MEAN PLATELET VOLUME 9.6 fL (9.2-13.0); MONOCYTES 6.8 %; NEUTROPHILS 80.7 %; NEUTROPHILS ABSOLUTE 10.63 10/3/uL (2.02-8.40); NUCLEATED RED BLOOD CELLS 1.4 /100WBC (0-0); RBC DISTRIBUTION WIDTH 18.3 % (12.0-16.0); RED CELL COUNT 3.87 10/6/uL (4.0-5.6); WHITE BLOOD CELLS 13.2 10/3/uL (4.5-10.5)
[2016-10-10 16:30] LABS: HEMATOCRIT 33.9 % (36.0-48.0); MEAN CORPUS HGB CONC 30.4 g/dL (32.0-36.0); PLATELET COUNT 1010 10/3/uL (150-400)
[2016-10-10 16:31] LABS: MANUAL DIFF NO %
[2016-10-10 16:33] LABS: INTERNATIONAL NORMAL RATI 1.2 UNITS (-); PARTIAL THROMBO TIME 38.8 SEC (22.5-37.2); PROTIME (NOT ORD) 14.9 SEC (12.0-14.5)
[2016-10-10 16:40] LABS: CALCIUM, SERUM 9.3 MG/DL (8.5-10.4); CHLORIDE, SERUM 98 MMOL/L (96-112); CO2 (CARBON DIOXIDE) 39 MMOL/L (24-34); CREATININE 1.02 MG/DL (0.55-1.02); GFR AFRICAN AMERICAN 61 ML/MIN (>=60); GFR NON AFRICAN AMERICAN 53 ML/MIN (>=60); GLUCOSE, SERUM 115 MG/DL (60-99); POTASSIUM, SERUM 4.3 MMOL/L (3.5-5.3); SGOT(AST) 21 U/L (5-40); SGPT(ALT) 14 U/L (5-65); SODIUM, SERUM 140 MMOL/L (135-148); TOTAL PROTEIN 7.3 G/DL (6.0-8.5)
[2016-10-10 16:41] LABS: A/G RATIO 0.9 (0.7-1.9); ALBUMIN 3.5 G/DL (3.5-5.0); ALKALINE PHOSPHATASE 75 U/L (45-117); BUN (BLOOD UREA NITROGEN) 12 MG/DL (6-23); GLOBULIN 3.8 G/DL (2.5-4.1); TOTAL BILIRUBIN 1.7 MG/DL (0-1.2)
[2016-10-10 16:52] LABS: ANISOCYTOSIS 1+ (5-10/OIF) (0-5/OIF); BAND NEUTROPHILS 7 %; EOSINOPHILS 5 %; EOSINOPHILS ABSOLUTE (CALC) 0.66 10/3/uL (0.0-0.53); ER DIFF TAT 0 Hrs 31 Mins; LYMPHOCYTES 5 %; LYMPHOCYTES ABSOLUTE (CALC) 0.66 10/3/uL (0.67-4.30); MONOCYTES 4 %; MONOCYTES ABSOLUTE (CALC) 0.53 10/3/uL (0.21-1.20); NEUTROPHILS ABSOLUTE (CALC) 11.35 10/3/uL (2.02-8.40); POLYCHROMASIA 1+ (2-5/OIF) (0-1/OIF); SEGMENTED NEUTROPHIL (0) 79 %; TOTAL NUCLEATED CELLS 100
[2016-10-10] MEDS ORDERED: T PO (17:39)
[2016-10-10] MEDS ORDERED: ALBUTEROL0.083 % INH (17:39)
[2016-10-10] MEDS ORDERED: ASAB PO (17:40)
[2016-10-10] MEDS ORDERED: CELEXA10 PO (17:40)
[2016-10-10] MEDS ORDERED: COREG12 PO (17:40)
[2016-10-10] MEDS ORDERED: NEUR300 PO (17:40)
[2016-10-10] MEDS ORDERED: MUCINEX600 MG PO (17:41)
[2016-10-10] MEDS ORDERED: NORCO1 TA1 PO (17:41)
[2016-10-10] MEDS ORDERED: AMARYL1 MG PO (17:41)
[2016-10-10] MEDS ORDERED: NITROSTAT0.4 MG PO (17:41)
[2016-10-10] MEDS ORDERED: PROTONIX PO (17:42)
[2016-10-10] MEDS ORDERED: NASONEX NAS (17:42)
[2016-10-10] MEDS ORDERED: XYZAL5 MG PO (17:42)
[2016-10-10] MEDS ORDERED: SPIRIVA INH (17:43)
[2016-10-10] MEDS ORDERED: RESTORA PO (17:43)
[2016-10-10] MEDS ORDERED: CILOXAN OPH (17:44)
[2016-10-10] MEDS ORDERED: PREDFORTE OPH (17:44)
[2016-10-10] MEDS ORDERED: TOBRAMYCIN300 MG/5 M INH (17:45)
[2016-10-10 19:36] LABS: TROPONIN I 0.02 NG/ML (<0.05)
[2016-10-10 19:54] LABS: PROCALCITONIN <0.05 ng/mL (<0.5)
[2016-10-10 23:35] LABS: HEMATOCRIT 32.6 % (36.0-48.0); HEMOGLOBIN 10.1 g/dL (12.0-16.0)
[2016-10-11 06:14] LABS: BUN (BLOOD UREA NITROGEN) 11 MG/DL (6-23); CALCIUM, SERUM 9.2 MG/DL (8.5-10.4); CHLORIDE, SERUM 100 MMOL/L (96-112); CO2 (CARBON DIOXIDE) 37 MMOL/L (24-34); CREATININE 1.07 MG/DL (0.55-1.02); DIRECT BILIRUBIN 0.2 MG/DL (0.0-0.4); GFR AFRICAN AMERICAN 58 ML/MIN (>=60); GFR NON AFRICAN AMERICAN 50 ML/MIN (>=60); INDIRECT BILIRUBIN(NOT ORDER) 0.5 MG/DL (0.1-0.9); POTASSIUM, SERUM 4.4 MMOL/L (3.5-5.3); SODIUM, SERUM 141 MMOL/L (135-148)
[2016-10-11 06:15] LABS: GLUCOSE, SERUM 75 MG/DL (60-99); TOTAL BILIRUBIN 0.7 MG/DL (0-1.2)
[2016-10-11 06:30] LABS: BASOPHILS 0.6 %; BASOPHILS ABSOLUTE 0.06 10/3/uL (0.0-0.16); EOSINOPHILS 1.6 %; EOSINOPHILS ABSOLUTE 0.16 10/3/uL (0.0-0.53); HEMATOCRIT 31.4 % (36.0-48.0); HEMOGLOBIN 9.6 g/dL (12.0-16.0); IMMATURE GRANULOCYTES 2.5 %; IMMATURE GRANULOCYTES ABSOLUTE 0.25 10/3/uL (0.0-0.11); LYMPHOCYTES ABSOLUTE 0.89 10/3/uL (0.67-4.30); MEAN CORPUS HGB CONC 30.6 g/dL (32.0-36.0); MEAN CORPUSCULAR HEMOGLOB 27.3 pg (26.0-34.0); MEAN CORPUSCULAR VOLUME 89.2 fL (80-100); MEAN PLATELET VOLUME 10.1 fL (9.2-13.0); MONOCYTES 8.5 %; MONOCYTES ABSOLUTE 0.84 10/3/uL (0.21-1.20); NEUTROPHILS 77.8 %; NEUTROPHILS ABSOLUTE 7.69 10/3/uL (2.02-8.40); NUCLEATED RED BLOOD CELLS 0.8 /100WBC (0-0); RBC DISTRIBUTION WIDTH 18.3 % (12.0-16.0); RED CELL COUNT 3.52 10/6/uL (4.0-5.6); WHITE BLOOD CELLS 9.9 10/3/uL (4.5-10.5)
[2016-10-11 06:31] LABS: MANUAL DIFF NO %; PLATELET COUNT 941 10/3/uL (150-400)
[2016-10-11 07:19] LABS: BAND NEUTROPHILS 8 %; EOSINOPHILS 1 %; LYMPHOCYTES 9 %; LYMPHOCYTES ABSOLUTE (CALC) 0.89 10/3/uL (0.67-4.30); MONOCYTES 9 %; MONOCYTES ABSOLUTE (CALC) 0.89 10/3/uL (0.21-1.20); NEUTROPHILS ABSOLUTE (CALC) 8.02 10/3/uL (2.02-8.40); SEGMENTED NEUTROPHIL (0) 73 %; TOTAL NUCLEATED CELLS 100
[2016-10-11 07:20] LABS: ANISOCYTOSIS 1+ (5-10/OIF) (0-5/OIF); ELLIPTOCYTES 1+ (3-10/OIF) (0-2/OIF); GIANT PLATELET RARE; HYPOCHROMIA 1+ (3-10/OIF) (0-2/OIF)
[2016-10-11 07:21] LABS: MICROCYTES 1+ (5-10/OIF) (0-5/OIF)
[2016-10-11 14:31] LABS: TROPONIN I <0.02 NG/ML (<0.05)
[2016-10-11 16:21] LABS: HEMATOCRIT 32.1 % (36.0-48.0); HEMOGLOBIN 9.8 g/dL (12.0-16.0)
[2016-10-11] MEDS ORDERED: LEVAQUIN750 MG PO (17:38)
[2016-10-11] MEDS ORDERED: NORCO1 TA1 PO (17:39)
[2016-10-11] MEDS ORDERED: FLORASTOR250 MG PO (17:45)
== END 2016-10-11 18:12 | disposition home or self-care (01) ==
LOC: ER 16:01 → CDU1 18:33
PROVIDERS: Emergency Medicine; Hospitalist
DX: R10.9 Unspecified abdominal pain (principal); K92.1 Melena; R04.2 Hemoptysis; J96.11 Chronic respiratory failure with hypoxia; J44.9 Chronic obstructive pulmonary disease, unspecified; J84.10 Pulmonary fibrosis, unspecified; D72.829 Elevated white blood cell count, unspecified; D64.9 Anemia, unspecified; I35.0 Nonrheumatic aortic (valve) stenosis; I50.9 Heart failure, unspecified; K21.9 Gastro-esophageal reflux disease without esophagitis; F32.9 Major depressive disorder, single episode, unspecified; Z86.010 Personal history of colon polyps; Z86.73 Personal history of transient ischemic attack (TIA), and cerebral infarction without residual deficits; Z87.891 Personal history of nicotine dependence; Z90.710 Acquired absence of both cervix and uterus; Z90.721 Acquired absence of ovaries, unilateral; Z88.0 Allergy status to penicillin; Z91.040 Latex allergy status; Z88.1 Allergy status to other antibiotic agents; Z99.81 Dependence on supplemental oxygen; Z79.52 Long term (current) use of systemic steroids; Z79.82 Long term (current) use of aspirin; Z79.899 Other long term (current) drug therapy
CPT/HCPCS: 36415; 71250; 74176; 80048; 80053; 82247; 82248; 82962; 83735; 84145; 84484; 85014; 85018; 85025; 85610; 85730; 86850; 86900; 86901; 87040; 87070; 87205; 93005; 93975; 94640; 96365; 96366; 96374; 96375; 99285; A9270-GY; C9113; G0378; J1956; J2405